=== PATIENT | female | born 1970 | race Caucasian/White ===

== ENCOUNTER → 2025-07-19 08:17 | Outpatient (REF) | payer BC, SELFPAY ==
[2025-07-19 10:24] LABS: Urine Character Clear (Clear)
[2025-07-19 10:31] LABS: Hematocrit 43.0 % (37.0-47.0); Hemoglobin 14.3 g/dL (12.0-16.0); Mean Corp Hgb Conc. 33.3 g/dL (33.0-37.0); Mean Corpuscular Volume 87.4 fL (81.0-99.0); Nucleated Red Blood Cells % 0 %; Platelet Count 321 10^3/uL (130-400); Red Cell Dist. Width 12.3 % (11.5-14.5)
[2025-07-19 11:54] LABS: AST (SGOT) 31 U/L (14-36); Alkaline Phosphatase 66 U/L (38-126); Carbon Dioxide 25 mmol/L (22-30); Chloride 101 mmol/L (98-107); Glucose 99 mg/dl (70-99); Total Protein 8.3 g/dl (6.3-8.2); Very Low Density Lipoprotein 13 mg/dl (0-30); eGFR > 60.00
[2025-07-19 12:04] LABS: ALT (SGPT) 53 U/L (0-35); Albumin 4.9 g/dl (3.5-5.0); Calcium 9.8 mg/dl (8.4-10.2); HDL Cholesterol 67 mg/dl; LDL Cholesterol, Calculated 134 mg/dl; Magnesium 1.9 mg/dl (1.6-2.3); Potassium 4.1 mmol/L (3.5-5.1); Sodium 137 mmol/L (135-145)
[2025-07-19 12:20] LABS: Vitamin D, 25-OH*** 48.7 ng/mL (30-80)
[2025-07-19 12:22] LABS: Blood Urea Nitrogen 19 mg/dl (7-17)
[2025-07-19 12:36] LABS: Glycohemoglobin (HgbA1c) 5.3 % (4.0-5.9)
[2025-07-19 13:09] LABS: Folate 13.1 ng/ml (2.76-20); Vitamin B12 981 pg/ml (239-931)
== END ==
LOC: REG 08:17
PROVIDERS: ATTENDING PHYSICIAN Family Medicine
DX: R73.03 Prediabetes (principal); E78.2 Mixed hyperlipidemia; G93.32 Myalgic encephalomyelitis/chronic fatigue syndrome
CPT/HCPCS: 36415; 80053; 80061; 81003; 81015; 82306; 82607; 82746; 83036; 83735; 84443; 85025